=== PATIENT | male | born 1995 | race Caucasian/White ===

== ENCOUNTER 2017-08-16 00:51 | Emergency (ER) | payer SELFPAY ==
[2017-08-16 02:13] VITALS: BP 111/90
== END 2017-08-16 02:13 | disposition home or self-care (01) ==
LOC: ED 00:51
DX: S60.861A Insect bite (nonvenomous) of right wrist, initial encounter (principal); L03.113 Cellulitis of right upper limb; W57.XXXA Bitten or stung by nonvenomous insect and other nonvenomous arthropods, initial encounter; Y93.89 Activity, other specified; Y92.89 Other specified places as the place of occurrence of the external cause; Y99.8 Other external cause status
CPT/HCPCS: J1885

== ENCOUNTER 2020-01-15 00:14 | Emergency (ER) | payer SELFPAY ==
[~2020-01-15] VITALS: Ht 180.3 cm; Wt 69.4 kg
[2020-01-15 00:26] VITALS: Ht 180.3 cm; Wt 69.4 kg
[2020-01-15 03:55] VITALS: BP 112/64
== END 2020-01-15 03:55 | disposition home or self-care (01) ==
LOC: ED 00:14
DX: G44.209 Tension-type headache, unspecified, not intractable (principal); V49.9XXA Car occupant (driver) (passenger) injured in unspecified traffic accident, initial encounter; Y93.89 Activity, other specified; Y92.89 Other specified places as the place of occurrence of the external cause; Y99.8 Other external cause status
CPT/HCPCS: J1885

== ENCOUNTER 2020-05-28 19:31 | Emergency (ER) | payer MEDICAID ==
[~2020-05-28] VITALS: Ht 180.3 cm; Wt 71.2 kg
[2020-05-28 19:58] VITALS: Ht 180.3 cm; Wt 71.2 kg
[2020-05-28 22:58] VITALS: BP 128/80
== END 2020-05-28 22:58 | disposition home or self-care (01) ==
LOC: ED 19:31
DX: S93.104A Unspecified dislocation of right toe(s), initial encounter (principal); W22.8XXA Striking against or struck by other objects, initial encounter; Y93.51 Activity, roller skating (inline) and skateboarding; Y92.331 Roller skating rink as the place of occurrence of the external cause; Y99.8 Other external cause status
CPT/HCPCS: J2001